=== PATIENT | female | born 1960 | race Caucasian/White ===

== ENCOUNTER → 2018-07-21 | Outpatient (CLI) | payer OTHER | LOC: M.RAD 10:39 | DX: Z12.31 Encounter for screening mammogram for malignant neoplasm of breast (principal) ==

== ENCOUNTER 2019-08-15 21:14 | Emergency (ER) | payer OTHER ==
[~2019-08-15] VITALS: Ht 162.6 cm; Wt 72.6 kg
[2019-08-15] MEDS ORDERED: NEURONTIN 300M300 M2 PO (21:31)
[2019-08-15] MEDS ORDERED: LOSARTAN-HCTZ1 EAC3 PO (21:32)
[2019-08-15] MEDS ORDERED: ZOLOFT20 MG/1 ML PO (21:32)
[2019-08-15] MEDS ORDERED: FLEXERIL PO (21:33)
[2019-08-15] MEDS ORDERED: MELOXICAM7.5 MG PO (21:33)
[2019-08-15] MEDS ORDERED: SUPER THERAVIT1 EACH PO (21:33)
[2019-08-15] MEDS ORDERED: HYDROCODON-ACE1 EAC7 PO (22:56)
[2019-08-15 23:11] VITALS: BP 134/69
== END 2019-08-15 23:11 | disposition home or self-care (01) ==
LOC: M.ERS 21:14
DX: S01.01XA Laceration without foreign body of scalp, initial encounter (principal); I10 Essential (primary) hypertension; M19.90 Unspecified osteoarthritis, unspecified site; G62.9 Polyneuropathy, unspecified; F17.200 Nicotine dependence, unspecified, uncomplicated; W18.39XA Other fall on same level, initial encounter; Y92.89 Other specified places as the place of occurrence of the external cause; Y99.8 Other external cause status

== ENCOUNTER 2020-06-08 15:50 | Emergency (ER) | payer OTHER ==
[~2020-06-08] VITALS: Ht 162.6 cm; Wt 74.8 kg
[~2020-06-08 15:50] MED LIST: FLEXERIL PO; HYDROCODON-ACE1 EAC7 PO; LOSARTAN-HCTZ1 EAC3 PO; MELOXICAM7.5 MG PO; NEURONTIN 300M300 M2 PO; SUPER THERAVIT1 EACH PO; ZOLOFT20 MG/1 ML PO
[2020-06-08 17:01] LABS: CALCIUM 8.5 mg/dL (8.5-10.1); CREATININE 0.6 mg/dL (0.6-1.3)
[2020-06-08 17:03] LABS: POTASSIUM 3.6 mmol/L (3.5-5.1)
[2020-06-08 17:05] LABS: ALBUMIN 4.3 g/dL (3.4-5.0); TOTAL BILIRUBIN 0.7 mg/dL (<0.1-1.0); TOTAL PROTEIN 8.1 g/dL (6.4-8.2)
[2020-06-08 17:19] LABS: ABSOLUTE BASOPHILS 0.1 thou/uL (0.0-0.2); ABSOLUTE EOSINOPHILS 0.4 thou/uL (0.0-0.7); ABSOLUTE MONOCYTES 0.5 thou/uL (0.0-1.2); ABSOLUTE NEUTROPHILS 6.6 thou/uL (1.6-8.1); BASOPHILS 0.8 %; EOSINOPHILS 3.4 %; HEMATOCRIT 42.5 % (37.0-47.0); HEMOGLOBIN 14.7 gm/dL (12.0-15.0); LYMPHOCYTES 28.3 %; MCH 31.7 pg (26.0-34.0); MCHC 34.4 g/dL (28.0-37.0); MCV 92.1 fL (80.0-100.0); MONOCYTES 5.1 %; MPV 10.1 fl. (7.2-11.1); NUCLEATED RBCS 0 /100WBC; PLATELET COUNT* 213 thou/uL (150-400); POLYS 62.4 %; RBC 4.62 mil/uL (4.20-5.00); RDW-CV 12.9 % (10.5-14.5); WBC 10.6 thou/uL (4.0-11.0)
[2020-06-08 17:33] LABS: URINE BILIRUBIN NEGATIVE (Negative); URINE BLOOD NEGATIVE (Negative); URINE CLARITY CLEAR; URINE COLOR YELLOW; URINE GLUCOSE-RANDOM NEGATIVE (Negative); URINE KETONES NEGATIVE (Negative); URINE LEUKOCYTES-REFLEX NEGATIVE (Negative); URINE NITRITE-REFLEX NEGATIVE (Negative); URINE PROTEIN NEGATIVE (Negative); URINE SPECIFIC GRAVITY 1.025 (1.005-1.030); URINE UROBILINOGEN 0.2 E.U./dl (0.2-1.0)
[2020-06-08] MEDS ORDERED: ONDANSETRON ODT4 MG PO (17:35)
[2020-06-08] MEDS ORDERED: NORCO 5-325 TA1 EAC2 PO (17:35)
[2020-06-08 17:57] VITALS: BP 126/73
== END 2020-06-08 17:58 | disposition home or self-care (01) ==
LOC: M.ERS 15:50
PROVIDERS: Physician Assistant
DX: R10.11 Right upper quadrant pain (principal); R07.81 Pleurodynia; M54.5 Low back pain; R11.0 Nausea; I10 Essential (primary) hypertension; M19.90 Unspecified osteoarthritis, unspecified site; G62.9 Polyneuropathy, unspecified; Z90.711 Acquired absence of uterus with remaining cervical stump; Z79.899 Other long term (current) drug therapy; Z98.890 Other specified postprocedural states

== ENCOUNTER → 2020-08-20 | Outpatient (CLI) | payer OTHER ==
[~2020-08-20] MED LIST changes: +NORCO 5-325 TA1 EAC2 PO; +ONDANSETRON ODT4 MG PO
== END ==
LOC: M.RAD 09:29
PROVIDERS: ATTEND Internal Medicine
DX: Z12.31 Encounter for screening mammogram for malignant neoplasm of breast (principal)